=== PATIENT | male | born 1945 | race Caucasian/White ===

== ENCOUNTER 2016-09-25 09:20 | Observation (INO) ==
[2016-09-25 10:05] LABS: Basophils % 0.4 % (0.0-0.8); Eosinophils # 0.3 10*3/uL (0.0-0.87); Eosinophils % 2.8 % (0.00-10.9); Hematocrit 36.4 VOL% (42.0-52.0); Immature Granulocytes % 0.5 %; Immature Granulocytes Absolute 0.05 #; Lymphocytes % 9.6 % (21.2-54.2); Mean Corpuscular HGB Conc 38.5 GM/DL (32-36); Mean Corpuscular Hemoglobin 36 PG (27-34); Mean Corpuscular Volume 93.3 FL (87-102); Mean Platelet Volume 11.4 FL (9.6-12.0); Monocytes % 9.4 % (1.7-12.7); Neutrophils # 8.1 10*3/uL (1.4-7.4); Neutrophils % 77.3 % (38.7-73.9); Platelet Count 236 T/CUMM (130-400); White Blood Count 10.5 T/CUMM (4-12)
[2016-09-25 10:15] LABS: Blood Urea Nitrogen 15 MG/DL (7-18); Calcium 8.8 MG/DL (8.5-10.1); Glucose 87 MG/DL (74-106); Magnesium 2.1 MG/DL (1.8-2.4); Osmolality,Calculated 280.3 MOS/KG (273-304); Potassium 4.3 MMOL/L (3.5-5.1); Sodium 141 MMOL/L (136-145); Troponin I Only < 0.015 NG/ML (0.00-0.045)
--- NOTE | 2016-09-25 10:32 | XRay Report ---
XR chest 2V Date: 09/25/2016 9:50 AM History: Chest pain, dyspnea Comparison: 01/12/2014 Technique: PA and lateral chest Findings: The heart is normal in size. The lungs are overexpanded with diffuse parenchymal findings which remain more prominent at the lung bases. Faint 9 mm mm nodular density in the right lower lobe. Stable mediastinum with degenerative changes. Impression: COPD with chronic scarring . Faint 9 mm nodular density in the right lower lobe. Recent CT report described similar finding dating back to 03/14/2015. PROCEDURE INTERPRETED AT [facility] DEPARTMENT OF RADIOLOGY Final Report Signed by: Dr. Lisa Gomez
--- NOTE | 2016-09-25 10:54 | Emergency Department Note ---
Chet Dee Brooke, am scribing for, and in the presence of, Shorty Barragan MD 09:52. Yung Dee Hans, MD, personally performed the services described in this documentation, ascribed by Sammi Rosenberg in my presence, and it is both accurate and complete . Arrival - Arrival Chief Complaint: Chest Pain Stated Complaint: chest pain ED Nursing Triage Note: Pt c/o Chest pain, SOB, Nausea, VALENCIA, and tightness in his throat since yesterday. Mode of Arrival: Ambulatory Limitations: No Limitations Source: Patient, RN Notes Reviewed Time Seen by Provider: 09/25/16 09:41 - History of Present Illness HPI Narrative: Patient is a 71 year old male who presents to the ED with c/o chest pain that started around 1500 yesterday. He describes the pain as pressure and says it has been constant but worse at times. When the pain first started, yesterday, he says he was at rest. Patient says he did have to have a heart cath and had a stent place, in the past, but says he has never experienced the chest pain. Patient says the pain goes up into his throat and that he has pain when swallowing. He says the pain when swallowing does not make the chest pain worse. He also complains of having shortness of breath, headache, and lightheadedness but denies any nausea or abdominal pain. Patient does have a history of GERD but says he is not having any problems with it at this time. He take a baby ASA daily and says he did take it today. Patient also has PMHx of CAD and HTN. Patient's Lead Presser is Dr. Sexton and he had an appointment about two months ago. Patient's Primary Care Provider is Dr. Miguel. He does not smoke cigarettes and does not drink alcohol. Onset (ago): day(s) (1) Allergies/Adverse Reactions: Allergies Allergy/AdvReac Type Severity Reaction Status Date / Time No Known Allergies Allergy Verified 09/25/16 09:22 Home Medications: Home Medications Medication Instructions Recorded Confirmed Type Citalopram [CeleXA] 20 mg PO DAILY 09/25/16 09/25/16 History Folic Acid Tab 1 mg PO DAILY 09/25/16 09/25/16 History Gabapentin 300 mg PO BID 09/25/16 09/25/16 History Hydroxychloroquine [Plaquenil] 400 mg PO DAILY 09/25/16 09/25/16 History Isosorbide Mononitrate [Isosorbide 30 mg PO MOWEFR 09/25/16 09/25/16 History Mononitrate ER] Methotrexate Tab 7.5 mg PO FR 09/25/16 09/25/16 History Omeprazole [Prilosec] 20 mg PO DAILY 09/25/16 09/25/16 History Rosuvastatin Calcium [Crestor] 5 mg PO MOWEFR 09/25/16 09/25/16 History Review of System - Review of System 12 point system: reviewed and no additional remarkable complaints except as stated - Review of System Constitutional: Absent: fever Head/Ears/Nose/Throat: Present: other (painful when swallowing) Respiratory: Absent: respiratory distress Cardiovascular: Present: chest pain Gastrointestinal: Absent: abdominal pain, nausea Musculoskeletal: Present: neck pain (radiating from chest) Skin: Absent: rash Neurological: Present: headache, other (lightheadedness) Medical,Surgical,& Family Hx - Medical History Cardio: History of: CAD, Hypertension - Surgical History Cardiac Surgeries: Sugical HX of: Cardiac Catheterization - Social History Smoking Status: Never smoker Exam Vital Signs: Vital Signs Temperature 97.0 F L 09/25/16 09:37 Pulse Rate 69 09/25/16 09:37 Respiratory Rate 18 09/25/16 09:37 Blood Pressure 146/99 09/25/16 09:37 O2 Sat by Pulse Oximetry 94 L 09/25/16 09:37 - General General appearance: alert, in no apparent distress - Head Head exam: Present: atraumatic, normocephalic - Eye Eye exam: Present: normal appearance, PERRL, EOMI - ENT ENT exam: Present: normal exam - Neck Neck exam: Present: normal inspection - Chest Chest inspection: Present: normal inspection, symmetric chest wall rise - Respiratory Respiratory exam: Present: normal lung sounds bilaterally - Cardiovascular Cardiovascular exam: Present: regular rate, normal rhythm, normal heart sounds - Abdominal Exam Abdominal exam: Present: soft. Absent: distention, tenderness - Extremities Exam Extremities exam: Present: normal inspection - Back Exam Back exam: Present: normal inspection - Neurological Exam Neurological exam: Present: alert, oriented X3 - Psychiatric Psychiatric exam: Present: normal affect, normal mood - Skin Skin exam: Present: warm, dry, intact, normal color Course Course Narrative: This patient was evaluated with EKG and lab work as well as chest x-ray. His workup was negative for any acute findings but he did have a slightly elevated d -dimer and his creatinine was 1.6. I discussed his care with the hospitalist team on-call who agreed to admit him for a rule out for chest pain and also discussed the d-dimer minimal elevation in kidney function. They agreed to come and see him in the ER. Results - Labs CBC & BMP: 09/25/16 09:39 09/25/16 09:39 Disposition Clinical Impression: Chest pain Case discussed with: patient, patient's family Disposition: Still a Patient Condition: Stable Instructions: Chest Pain (ED) Time of Disposition: 10:54
--- NOTE | 2016-09-25 11:22 | Hospitalist History & Physical ---
Assessment and Plan - Time spent with patient Time spent with patient: Greater than 30 minutes (1) Shortness of breath Status: Acute Assessment and plan: Mr. nelson is a 71-year-old white male with history of RA, hypertension, hyperlipidemia, coronary artery disease status post stent, COPD admitted by the hospitalist service with chest pain and shortness of breath. Patient will be admitted to Dr. Richter on telemetry under observation. Cardiology will be consulted due to patient's cardiac history to rule out ACS. Patient does have an elevated d-dimer but this could be due to his chronic scarring of his lungs. He does have chronic kidney disease that he was unaware of so this would limit the use of dye for a CT of the chest. We will go ahead and hydrate the patient and control his pain. Will get serial EKGs and cardiac enzymes and restart his home medicines. Will keep patient n.p.o. just in case cardiology wants to perform a stress test today. Dr. Richter to see and examined patient and further recommendations to follow. Current Visit: Yes (2) CAD (coronary artery disease) Status: Acute Current Visit: Yes (3) Rheumatoid arthritis Status: Acute Current Visit: Yes (4) COPD (chronic obstructive pulmonary disease) Status: Acute Current Visit: Yes (5) Chronic kidney disease Status: Acute Current Visit: Yes (6) Chest pain Status: Acute Current Visit: Yes History of Present Illness Chief complaint: Chest pain History of present illness: Mr. Nelson is a 71 year old white male with history of RA, GERD, hypertension, hyperlipidemia, CAD status post stent. Patient had a heart cath by Dr. Drummond approximately 8 years ago and he just saw Dr. Sexton for his checkup 3 months before admission. Patient states he was in his normal state of health until about 1500 yesterday when he began to experience some chest pain and pressure associated with shortness of breath. He states he did not become nauseous or diaphoretic. Patient states the pain has been intermittent off and on and rates it a 4 out of 10 right now. He says it does radiate into his throat. He denies difficulty swallowing or nausea with eating. Patient is afebrile and his pulse rate is normal but his blood pressure is mildly elevated at 146/99. Patient states he did take his medicines this morning. His initial troponin is negative and his EKG shows ectopic atrial rhythm with possible right ventricular hypertrophy and old SD. D-dimer is mildly elevated at 1.0 he does have a creatinine of 1.6 and noted in his old chart he had a creatinine of 1.7 and 2015. He denies blurry vision, abdominal pain, constipation or diarrhea , dysuria, or lower extremity edema. Patient denies that he has any problems with his kidneys and he denies COPD. Dr. Winter has been following him for a right lower lobe nodule with a CT of his chest done in July 2016. It does show the stable lung nodule and fibrosis. After discussion with Dr. Barragan the ED physician and Dr. Richter the admitting hospitalist, it was agreed patient would be admitted under observation for further evaluation. Home Medications Medication Instructions Recorded Confirmed Type Citalopram [CeleXA] 20 mg PO DAILY 09/25/16 09/25/16 History Folic Acid Tab 1 mg PO DAILY 09/25/16 09/25/16 History Gabapentin 300 mg PO BID 09/25/16 09/25/16 History Hydroxychloroquine [Plaquenil] 400 mg PO DAILY 09/25/16 09/25/16 History Isosorbide Mononitrate [Isosorbide 30 mg PO MOWEFR 09/25/16 09/25/16 History Mononitrate ER] Methotrexate Tab 7.5 mg PO FR 09/25/16 09/25/16 History Omeprazole [Prilosec] 20 mg PO DAILY 09/25/16 09/25/16 History Rosuvastatin Calcium [Crestor] 5 mg PO MOWEFR 09/25/16 09/25/16 History Allergies Allergy/AdvReac Type Severity Reaction Status Date / Time No Known Allergies Allergy Verified 09/25/16 09:22 Medical,Surgical,& Family Hx - Medical History Cardio: History of: CAD, Hypertension - Surgical History Cardiac Surgeries: Sugical HX of: Cardiac Catheterization Abdominal Surgeries: Surgical HX of: Hernia Repair - Family History Family History: Reports;: Family Heart Disease - Social History Smoking Status: Former smoker Have you smoked in the last 12 months: No Frequency of Alcohol Use: None Type of Drug Use: None Marital Status: Lives With:: Spouse Functional capacity: independent ambulation Review of systems: A complete 10 system review of systems was obtained and pertinent positives and negatives per HPI Exam - Constitutional Vitals: Period Temp Pulse Resp BP Sys/Lucero Pulse Ox Last 24 Hr 97.0 F-97.0 F 69-69 18-18 146-146/99-99 94 Exam: Constitutional System: No distress. No tremulousness. Head: Normocephalic, atraumatic. Ears, Nose and Throat System: No evidence of Otitis or Mastoiditis. No epistaxis or discharge Eyes System: Pupils equal, round, and reactive. Extraocular muscles intact. Neck: Supple, without adenopathy, No jugular venous distention. No thyromegaly, neck mass, or prior surgery apparent. Respiratory System: Chest clear to auscultation. Cardiovascular System: Heart with regular rate and rhythm. No murmur. GI System: Abdomen soft, nontender. Normo active bowel sounds present. Musculoskeletal System: limbs with no pedal edema. Full distal pulses. Neurological System: No discernable sensory deficit. No aphasia Psychiatric System: Conversation is rational Results - Labs CBC & BMP: 09/25/16 09:39 09/25/16 09:39 Lab Results: I have reviewed the past 24 hour labs - Impressions EKG is reading ectopic atrial rhythm with possible right ventricular hypertrophy and a septal SD, probably old - Diagnostic Findings Procedure: Chest x-ray: report reviewed by me (COPD with chronic scarring. Faint 9 mm nodular density in the right lower lobe)
[2016-09-25] MEDS ORDERED: ONDANSETRON 4 MG/2 ML VIAL IV PRN (11:29)
[2016-09-25] MEDS ORDERED: diphenhydrAMINE CAP 25 MG CAPSULE PO PRN (11:29)
[2016-09-25] MEDS ORDERED: guaiFENesin/DM ER 600-30 MG TABLET PO PRN (11:29)
[2016-09-25] MEDS ORDERED: ACETAMINOPHEN 325 MG TABLET PO PRN ×2 (11:29)
[2016-09-25] MEDS ORDERED: MORPHINE 2 MG/1 ML SYRINGE IV PRN (11:29)
[2016-09-25] MEDS ORDERED: DOCUSATE SODIUM 100 MG CAPSULE PO PRN (11:29)
[2016-09-25] MEDS ORDERED: PROMETHAZINE 25 MG/1 ML VIAL IM PRN (11:29)
[2016-09-25] MEDS ORDERED: PANTOPRAZOLE 40 MG TABLET PO SCH (11:30)
[2016-09-25] MEDS ORDERED: ROSUVASTATIN 10 MG TABLET PO SCH (11:45)
[2016-09-25] MEDS ORDERED: ISOSORBIDE MONONITRATE 30 MG TABLET PO SCH (12:00)
[2016-09-25] MEDS ORDERED: METHOTREXATE 2.5 MG TABLET PO SCH (12:00)
[2016-09-25 12:03] LABS: Risk Ratio 3.59; Thyroid Stimulating Hormone 2.14 uIU/ml (0.358-3.74)
[2016-09-25] MEDS ORDERED: ASPIRIN 325 MG TABLET PO ONE (12:39)
[2016-09-25] MEDS ORDERED: ENOXAPARIN 60 MG/0.6 ML SYRINGE SUBCUT ONE (12:41)
--- NOTE | 2016-09-25 12:54 | Cardiology Consult Note ---
<Sheryl Garcia E - Last Filed: 09/25/16 12:23> Assessment and Plan - Time spent with patient Time spent with patient: Greater than 30 minutes (1) Hypertension Status: Chronic Assessment and plan: SEE PLAN OF CARE LISTED BELOW Current Visit: Yes (2) Dyslipidemia Status: Chronic Assessment and plan: SEE PLAN OF CARE LISTED BELOW Current Visit: Yes (3) Dysuria Status: Acute Assessment and plan: SEE PLAN OF CARE LISTED BELOW Current Visit: Yes (4) Chest pain Status: Acute Assessment and plan: SEE PLAN OF CARE LISTED BELOW Current Visit: Yes (5) CAD (coronary artery disease) Status: Chronic Assessment and plan: SEE PLAN OF CARE LISTED BELOW Current Visit: Yes (6) Chronic kidney disease Status: Chronic Assessment and plan: SEE PLAN OF CARE LISTED BELOW Current Visit: Yes Qualifiers: Chronic kidney disease stage: stage 3 (moderate) Qualified Code(s): N18.3 - Chronic kidney disease, stage 3 (moderate) History of Present Illness - Data of Consult Patient: known to practice within the last 3 years Consult date: 09/25/16 Requesting Physician: Maribel Richter - Consult Narrative Reason for consult: chset pain, known CAD History of present illness: RF TEST TECHNICIAN: DR. MORAN Patient is being seen in the emergency department Mr. Auguste, 71WM, is routinely followed by Dr. Moran. He was last seen in cardiology clinic April 21, 2016. Risk factors include: Age, known coronary artery disease, hypertension, dyslipidemia, family history of premature coronary artery disease. Last cardiac catheterization occurred July 11, 2010, see report below, but basically required PCI to obtuse marginal circumflex, moderate disease in the proximal LAD, RI, and chronically occluded right coronary artery with collaterals (nondominant right coronary artery). EF 50%. Patient arrived to the [facility] ED this morning after experiencing chest pain since 3 PM yesterday. It has been constant and without relief. He describes the discomfort as sharp in the center of his chest which radiates toward his sternal notch. It is worse when taking a deep breath. Walking does make this worse as he tries to take a deep breath, worse in certain positions. Examining the patient, he pulls himself forward and has severe chest pain. He rates the discomfort at its worst as a 7 on a scale of 1-10, currently a 4. There is no nausea, or diaphoresis. He can identify no alleviating factors. Patient states that he is normally very active doing frequent heavy lifting. Denies a history of DVT or PTE. Cardiac biomarkers are negative, EKG reveals possible old septal [place]. I have ordered aspirin, Nitropaste, beta blockade, therapeutic dosing of Lovenox until we can rule out PE or angina. VQ lung scan will be ordered. UA for dysuria. Also, will treat for musculoskeletal pain. No recent echocardiogram has been found. Will consider ordering echo if Dr. Woo believes one is warranted during this hospitalization. I will further discuss with Dr. Woo and await additional recommendations. ASSESSMENT/PLAN: 1. CHEST PAIN -patient has a history of known coronary artery disease. The chest discomfort he is describing is concerning for musculoskeletal component versus pulmonary thromboembolism. Patient admits to lifting heavy items frequently and recently. VQ lung scan will be ordered. I have ordered an aspirin, Lovenox (therapeutic dose) beta-blockade and nitrates. Continue cycle his cardiac biomarkers and EKG. Treat pain with musculoskeletal meds in the interim. 2. KNOWN CAD - obtained heart catheterization from 2010 and will have this scanned-in. Details listed above 3. HYPERTENSION - usually well controlled. Giving beta-perez and 4. DYSLIPIDEMIA - had recent lipid profile in the clinic and therefore will not repeat at this point. Continue lipid-lowering agent. 5. DYSURIA -UA, C&S if warranted 6. CKD, STAGE III - continue to monitor creatinine closely CC: Maribel Richter MD - Home Medications and Allergies Home Medications: Home Medications Medication Instructions Recorded Confirmed Type Citalopram [CeleXA] 20 mg PO DAILY 09/25/16 09/25/16 History Folic Acid Tab 1 mg PO DAILY 09/25/16 09/25/16 History Gabapentin 300 mg PO BID 09/25/16 09/25/16 History Hydroxychloroquine [Plaquenil] 400 mg PO DAILY 09/25/16 09/25/16 History Isosorbide Mononitrate [Isosorbide 30 mg PO MOWEFR 09/25/16 09/25/16 History Mononitrate ER] Methotrexate Tab 7.5 mg PO FR 09/25/16 09/25/16 History Omeprazole [Prilosec] 20 mg PO DAILY 09/25/16 09/25/16 History Rosuvastatin Calcium [Crestor] 5 mg PO MOWEFR 09/25/16 09/25/16 History Ferrous Sulfate [Iron] 1 tablet PO DAILY 09/26/16 09/26/16 History Multivitamin [Multivitamins] 1 each PO DAILY 09/26/16 09/26/16 History [place]-3/Dha/Epa/Fish Oil [Fish Oil 1,000 mg PO DAILY 09/26/16 09/26/16 History 1,000 mg Softgel] Allergies/Adverse Reactions: Allergies Allergy/AdvReac Type Severity Reaction Status Date / Time No Known Allergies Allergy Verified 09/25/16 09:22 Review of systems: REVIEW OF SYSTEMS: - Constitutional Constitutional: Denies fatigue. Absent: syncope, anorexia, night sweats - EENT Eyes: Absent: blurry vision, loss of vision, diplopia Ears: Absent: decreased hearing, ear pain, ear discharge - Cardiovascular Cardiovascular: Present: chest pain with deep breath, certain movements. Difficulty breathing with exertion due to pain when taking a deep breath. No recent edema or palpitations. No claudication - Respiratory Respiratory: Present: Denies cough, hemoptysis. Absent: wheezing, hemoptysis, change in phlegm color - Gastrointestinal Gastrointestinal: Denies constipation constipation. Absent: Abdominal pain, hematemesis, hematochezia, melena, change in bowel habits, nausea - Genitourinary Genitourinary: Acknowledges recent dysuria including difficulty urinating and foul-smelling urine. Absent: difficulty urinating, urinary hesitancy, flank pain - Musculoskeletal Musculoskeletal: Present: back pain Absent: joint swelling, muscle cramps, muscle weakness - Neurological Neurological: Present: normal gait without frequent falls. Absent: dizziness, hemiparesis - Psychiatric Psychiatric: Absent: anxiety, depression, difficulty concentrating - Endocrine Endocrine: Denies fatigue. Absent: cold intolerance, heat intolerance, polyuria , polyphagia, polydipsia - Hematologic/Lymphatic Hematologic/Lymphatic: Present: easy bruising. Absent: easy bleeding -Integumentary Integumentary: Absent: lesions, rashes, skin breakdown Medical,Surgical,& Family Hx - Medical History Cardio: History of: CAD, Hypertension No history of: Cardiac Dysrhythmia - Surgical History Cardiac Surgeries: Sugical HX of: Cardiac Catheterization Abdominal Surgeries: Surgical HX of: Hernia Repair - Family History Family History: Reports;: Family Heart Disease - Social History Smoking Status: Former smoker Have you smoked in the last 12 months: No Frequency of Alcohol Use: None Type of Drug Use: None Marital Status: Lives With:: Spouse Functional capacity: independent ambulation Physical Examination Vital Signs Temp Pulse Resp BP 97.0 F L 69 18 146/99 09/25/16 09:35 09/25/16 09:35 09/25/16 09:35 09/25/16 09:35 General: [Appears well with no apparent distress.] [Pleasant and cooperative. ] [Appears comfortable.] HEENT: [PERRL, normocephalic, atraumatic. Mucous membranes moist. No jaundice noted. Conjunctiva moist and clear, sclerae anicteric] Neck: No JVD/HJR, no thyromegaly or lymphadenopathy noted. No carotid bruit appreciated Cardiac: [Regular rate and rhythm.] [No murmur rub or gallop.] Lungs: [Clear to auscultation without accessory muscle use to assist the respiratory pattern.] Oxygen in use via nasal cannula Abdomen: Soft, bowel sounds normoactive. Nontender and nondistended. No abdominal bruit or thrill noted. No masses noted. Musculoskeletal: No fluid collection. Decreased range of motion is noted. Extremities: No clubbing, cyanosis noted. [ No edema noted.] Upper extremity pulses 2+. Lower extremity pulses 2+. Capillary refill less than 3 seconds. Skin: No unusual lesions or rashes. No skin breakdown appreciated. Neuro: Awake, alert and oriented 3. Moves all extremities well without hemiparesis or paralysis. No essential tremor is appreciated. Result/EKG - Labs CBC & BMP: 09/25/16 09:39 09/25/16 09:39 Lab Results: I have reviewed the past 24 hour labs Labs: Laboratory Results - last 24 hr 09/25/16 09/25/16 09/25/16 09:30 09:39 09:39 WBC 10.5 RBC 3.90 Hgb 14.0 Hct 36.4 L MCV 93.3 MCH 36 H MCHC 38.5 H RDW 13.0 Plt Count 236 MPV 11.4 Neut % (Auto) 77.3 H Lymph % (Auto) 9.6 L [place] % (Auto) 9.4 Eos % (Auto) 2.8 Baso % (Auto) 0.4 Neut # (Auto) 8.1 H Lymph # (Auto) 1.0 L [place] # (Auto) 1.0 H Eos # (Auto) 0.3 Baso # (Auto) 0.0 Immature Gran % 0.5 Nucleated RBC % 0.0 Immature Gran # 0.05 Nucleated RBCs # 0.00 D-Dimer, Quantitative 1.0 Sodium Potassium Chloride Carbon Dioxide Anion Gap BUN Creatinine GFR Calculation BUN/Creatinine Ratio Glucose Calculated Osmolality Calcium Magnesium Total Creatine Kinase CK-MB (CK-2) Troponin I B-Natriuretic Peptide Triglycerides 110 Cholesterol 183 LDL Cholesterol 108.0 VLDL Cholesterol 22.0 HDL Cholesterol 51 Heart Disease Risk Ratio 3.59 TSH 3rd Generation 2.140 09/25/16 09/25/16 09:39 09:39 WBC RBC Hgb Hct MCV MCH MCHC RDW Plt Count MPV Neut % (Auto) Lymph % (Auto) [place] % (Auto) Eos % (Auto) Baso % (Auto) Neut # (Auto) Lymph # (Auto) [place] # (Auto) Eos # (Auto) Baso # (Auto) Immature Gran % Nucleated RBC % Immature Gran # Nucleated RBCs # D-Dimer, Quantitative Sodium 141 Potassium 4.3 Chloride 106 Carbon Dioxide 27 Anion Gap 12.3 BUN 15 Creatinine 1.60 H GFR Calculation 54 BUN/Creatinine Ratio 9.00 Glucose 87 Calculated Osmolality 280.3 Calcium 8.8 Magnesium 2.1 Total Creatine Kinase 70 CK-MB (CK-2) < 1.0 Troponin I < 0.015 B-Natriuretic Peptide 127 H Triglycerides Cholesterol LDL Cholesterol VLDL Cholesterol HDL Cholesterol Heart Disease Risk Ratio TSH 3rd Generation - Diagnostic Findings Procedure: Chest x-ray: report reviewed by me - EKG EKG results: interpreted by mi EKG shows: sinus rhythm Specialty Discharge - Follow Up or Referrals <Andrzej oWo - Last Filed: 09/26/16 10:36> History of Present Illness - Consult Narrative History of present illness: Mr. Auguste is a 71 year old male CC: Maribel Richter MD Physical Examination Vital Signs Temp Pulse Resp BP 97.0 F L 69 18 146/99 09/25/16 09:35 09/25/16 09:35 09/25/16 09:35 09/25/16 09:35 Result/EKG - Labs CBC & BMP: 09/26/16 04:19 09/26/16 04:19 Labs: Laboratory Results - last 24 hr 09/25/16 09/25/16 09/25/16 09:30 09:30 09:39 WBC RBC Hgb Hct MCV MCH MCHC RDW Plt Count MPV Neut % (Auto) Lymph % (Auto) [place] % (Auto) Eos % (Auto) Baso % (Auto) Neut # (Auto) Lymph # (Auto) [place] # (Auto) Eos # (Auto) Baso # (Auto) Immature Gran % Nucleated RBC % Immature Gran # Nucleated RBCs # Sodium Potassium Chloride Carbon Dioxide Anion Gap BUN Creatinine GFR Calculation BUN/Creatinine Ratio Glucose Calculated Osmolality Calcium Magnesium Total Creatine Kinase CK-MB (CK-2) Troponin I B-Natriuretic Peptide 127 H Triglycerides 110 Cholesterol 183 LDL Cholesterol 108.0 VLDL Cholesterol 22.0 HDL Cholesterol 51 Heart Disease Risk Ratio 3.59 Free T4 0.87 TSH 3rd Generation 2.140 09/25/16 09/25/16 09/26/16 19:29 23:13 04:19 WBC 10.7 RBC 3.75 L Hgb 12.7 L Hct 35.2 L MCV 93.9 MCH 34 MCHC 36.1 H RDW 12.8 Plt Count 221 MPV 11.4 Neut % (Auto) 72.7 Lymph % (Auto) 14.5 L [place] % (Auto) 10.2 Eos % (Auto) 1.9 Baso % (Auto) 0.4 Neut # (Auto) 7.8 H Lymph # (Auto) 1.6 [place] # (Auto) 1.1 H Eos # (Auto) 0.2 Baso # (Auto) 0.0 Immature Gran % 0.3 Nucleated RBC % 0.0 Immature Gran # 0.03 Nucleated RBCs # 0.00 Sodium Potassium Chloride Carbon Dioxide Anion Gap BUN Creatinine GFR Calculation BUN/Creatinine Ratio Glucose Calculated Osmolality Calcium Magnesium Total Creatine Kinase 51 D 52 CK-MB (CK-2) < 1.0 < 1.0 Troponin I < 0.015 < 0.015 B-Natriuretic Peptide Triglycerides Cholesterol LDL Cholesterol VLDL Cholesterol HDL Cholesterol Heart Disease Risk Ratio Free T4 TSH 3rd Generation 09/26/16 04:19 WBC RBC Hgb Hct MCV MCH MCHC RDW Plt Count MPV Neut % (Auto) Lymph % (Auto) [place] % (Auto) Eos % (Auto) Baso % (Auto) Neut # (Auto) Lymph # (Auto) [place] # (Auto) Eos # (Auto) Baso # (Auto) Immature Gran % Nucleated RBC % Immature Gran # Nucleated RBCs # Sodium 141 Potassium 4.5 Chloride 106 Carbon Dioxide 27 Anion Gap 12.5 BUN 17 Creatinine 1.60 H GFR Calculation 54 BUN/Creatinine Ratio 10.00 Glucose 86 Calculated Osmolality 281.3 Calcium 7.9 L Magnesium 2.1 Total Creatine Kinase CK-MB (CK-2) Troponin I B-Natriuretic Peptide Triglycerides Cholesterol LDL Cholesterol VLDL Cholesterol HDL Cholesterol Heart Disease Risk Ratio Free T4 TSH 3rd Generation
--- NOTE | 2016-09-25 13:31 | Nuclear Medicine Report ---
Exam: Lung scan ventilation/perfusion Date: September 25, 2016 Comparison: Chest 2 views September 25, 2016 Reason: Chest pain with deep breath Technique: 40 mCi of technetium 99m DTPA aerosolized was administered as well as 5 mCi of technetium 99m MAA IV. Ventilation and perfusion images of both lungs were acquired. Findings: There are a few small matched ventilation/perfusion defects at both lungs. There are also one or 2 small mismatched perfusion defects and mismatched ventilation defects. However, no large mismatched perfusion defect is identified. Impression: Low probability for pulmonary embolism. PROCEDURE INTERPRETED AT [facility] DEPARTMENT OF RADIOLOGY Final Report Signed by: Dr. Moy Rome
--- NOTE | 2016-09-25 13:58 | EKG Report ---
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
[2016-09-25] MEDS: HYDROXYCHLOROQUINE 200 MG TABLET PO SCH (15:15)
[2016-09-25] MEDS: NITROGLYCERIN 2% OINT 1 INCH/GM PACK TOP SCH ×2 (15:15→18:31)
[2016-09-25] MEDS: GABAPENTIN 300 MG CAPSULE PO SCH ×2 (15:15→21:50)
[2016-09-25] MEDS: CITALOPRAM 20 MG TABLET PO SCH (15:16)
[2016-09-25] MEDS: FOLIC ACID 1 MG TABLET PO SCH (15:16)
[2016-09-25] MEDS: METOPROLOL TARTRATE 25 MG TABLET PO SCH ×2 (15:16→21:50)
[2016-09-25] MEDS: SODIUM CHLORIDE 0.9% 1,000 ML IV SCH ×2 (15:17→21:52)
[2016-09-25] MEDS: ENOXAPARIN 40 MG/0.4 ML SYRINGE SUBCUT SCH (15:17)
[2016-09-25] MEDS: PANTOPRAZOLE 40 MG VIAL IV SCH (15:34)
[2016-09-25 20:22] LABS: Troponin I Only < 0.015 NG/ML (0.00-0.045)
[2016-09-26] LABS: Troponin I Only < 0.015 NG/ML (0.00-0.045)
[2016-09-26] MEDS: NITROGLYCERIN 2% OINT 1 INCH/GM PACK TOP SCH ×2 (00:01→06:25)
[2016-09-26 04:59] LABS: Basophils % 0.4 % (0.0-0.8); Eosinophils # 0.2 10*3/uL (0.0-0.87); Eosinophils % 1.9 % (0.00-10.9); Hematocrit 35.2 VOL% (42.0-52.0); Hemoglobin 12.7 GM/DL (14.0-18.0); Immature Granulocytes % 0.3 %; Immature Granulocytes Absolute 0.03 #; Lymphocytes # 1.6 10*3/uL (1.4-4.0); Lymphocytes % 14.5 % (21.2-54.2); Mean Corpuscular HGB Conc 36.1 GM/DL (32-36); Mean Corpuscular Hemoglobin 34 PG (27-34); Mean Corpuscular Volume 93.9 FL (87-102); Mean Platelet Volume 11.4 FL (9.6-12.0); Monocytes # 1.1 10*3/uL (0.11-0.8); Monocytes % 10.2 % (1.7-12.7); Neutrophils # 7.8 10*3/uL (1.4-7.4); Neutrophils % 72.7 % (38.7-73.9); Platelet Count 221 T/CUMM (130-400); Red Blood Count 3.75 MC/CUMM (3.8-5.5); Red Cell Distribution Width 12.8 % (9.3-17.3); White Blood Count 10.7 T/CUMM (4-12)
[2016-09-26 05:36] LABS: Calcium 7.9 MG/DL (8.5-10.1); Magnesium 2.1 MG/DL (1.8-2.4); Osmolality,Calculated 281.3 MOS/KG (273-304); Potassium 4.5 MMOL/L (3.5-5.1)
[2016-09-26] MEDS: SODIUM CHLORIDE 0.9% 1,000 ML IV SCH ×2 (06:25→08:34)
[2016-09-26] MEDS: FOLIC ACID 1 MG TABLET PO SCH (09:16)
[2016-09-26] MEDS: METOPROLOL TARTRATE 25 MG TABLET PO SCH (09:16)
[2016-09-26] MEDS: CITALOPRAM 20 MG TABLET PO SCH (09:16)
[2016-09-26] MEDS: GABAPENTIN 300 MG CAPSULE PO SCH (09:16)
[2016-09-26] MEDS: HYDROXYCHLOROQUINE 200 MG TABLET PO SCH (09:18)
[2016-09-26] MEDS: PANTOPRAZOLE 40 MG VIAL IV SCH (09:18)
--- NOTE | 2016-09-26 10:39 | Cardiology Progress Note ---
Assessment and Plan (1) Chest pain Status: Acute Assessment and plan: 1. 71-year-old with history of moderate coronary artery disease and significant disease requiring circumflex stenting in [address] Gonzales who had some pleuritic chest pain when he came in yesterday after doing some fairly heavy physical exertion previously 2. He has no acute EKG changes rule out for [place] 3. Given his gradual increased fatigue/dyspnea on exertion over the last few years, would schedule pharmacologic myocardial scan next week with follow-up with Dr. Gonzales in 1-2 weeks time. Of course will need to be n.p.o. prior to his stress test. 4. He can be discharged from a cardiac standpoint. He can continue his previous home cardiac medications. He has occasional GERD, and I recommend as needed H2 perez or PPI. Current Visit: Yes (2) Shortness of breath Status: Acute Current Visit: Yes Cardiology - PN: Subj Interval history: Mr. nelson feels great this morning has no more chest pain. He is anxious for discharge. He reports he has had worsening dyspnea on exertion gradually for several years "I give out fact that I used to". His reports he is very active and works hours per day. He did do some significant physical activity prior to developing his pleuritic chest pain. Exam (Progress Note) - Constitutional Vitals: Period Temp Pulse Resp BP Sys/Lucero Pulse Ox Last 24 Hr 97.7 F-99.9 F 60-70 16-21 124-174/69-92 94-97 General appearance: normal weight, no acute distress - Head Head exam: Present: normal inspection, normocephalic - Respiratory Respiratory exam: Present: clear to auscultation bilaterally. Absent: stridor, wheezes - Cardiovascular Cardiovascular exam: Present: regular rate and rhythm. Absent: diastolic murmur , rubs - GI/Abdominal GI/Abdominal exam: Present: soft. Absent: tenderness - Extremities Exam Extremities exam: Absent: edema Result/EKG - Labs CBC & BMP: 09/26/16 04:19 09/26/16 04:19 Labs: Laboratory Results - last 24 hr 09/25/16 09/25/16 09/25/16 09:30 09:30 09:39 WBC RBC Hgb Hct MCV MCH MCHC RDW Plt Count MPV Neut % (Auto) Lymph % (Auto) [place] % (Auto) Eos % (Auto) Baso % (Auto) Neut # (Auto) Lymph # (Auto) [place] # (Auto) Eos # (Auto) Baso # (Auto) Immature Gran % Nucleated RBC % Immature Gran # Nucleated RBCs # Sodium Potassium Chloride Carbon Dioxide Anion Gap BUN Creatinine GFR Calculation BUN/Creatinine Ratio Glucose Calculated Osmolality Calcium Magnesium Total Creatine Kinase CK-MB (CK-2) Troponin I B-Natriuretic Peptide 127 H Triglycerides 110 Cholesterol 183 LDL Cholesterol 108.0 VLDL Cholesterol 22.0 HDL Cholesterol 51 Heart Disease Risk Ratio 3.59 Free T4 0.87 TSH 3rd Generation 2.140 09/25/16 09/25/16 09/26/16 19:29 23:13 04:19 WBC 10.7 RBC 3.75 L Hgb 12.7 L Hct 35.2 L MCV 93.9 MCH 34 MCHC 36.1 H RDW 12.8 Plt Count 221 MPV 11.4 Neut % (Auto) 72.7 Lymph % (Auto) 14.5 L [place] % (Auto) 10.2 Eos % (Auto) 1.9 Baso % (Auto) 0.4 Neut # (Auto) 7.8 H Lymph # (Auto) 1.6 [place] # (Auto) 1.1 H Eos # (Auto) 0.2 Baso # (Auto) 0.0 Immature Gran % 0.3 Nucleated RBC % 0.0 Immature Gran # 0.03 Nucleated RBCs # 0.00 Sodium Potassium Chloride Carbon Dioxide Anion Gap BUN Creatinine GFR Calculation BUN/Creatinine Ratio Glucose Calculated Osmolality Calcium Magnesium Total Creatine Kinase 51 D 52 CK-MB (CK-2) < 1.0 < 1.0 Troponin I < 0.015 < 0.015 B-Natriuretic Peptide Triglycerides Cholesterol LDL Cholesterol VLDL Cholesterol HDL Cholesterol Heart Disease Risk Ratio Free T4 TSH 3rd Generation 09/26/16 04:19 WBC RBC Hgb Hct MCV MCH MCHC RDW Plt Count MPV Neut % (Auto) Lymph % (Auto) [place] % (Auto) Eos % (Auto) Baso % (Auto) Neut # (Auto) Lymph # (Auto) [place] # (Auto) Eos # (Auto) Baso # (Auto) Immature Gran % Nucleated RBC % Immature Gran # Nucleated RBCs # Sodium 141 Potassium 4.5 Chloride 106 Carbon Dioxide 27 Anion Gap 12.5 BUN 17 Creatinine 1.60 H GFR Calculation 54 BUN/Creatinine Ratio 10.00 Glucose 86 Calculated Osmolality 281.3 Calcium 7.9 L Magnesium 2.1 Total Creatine Kinase CK-MB (CK-2) Troponin I B-Natriuretic Peptide Triglycerides Cholesterol LDL Cholesterol VLDL Cholesterol HDL Cholesterol Heart Disease Risk Ratio Free T4 TSH 3rd Generation Specialty Discharge - Follow Up or Referrals
--- NOTE | 2016-09-26 11:03 | Discharge Summary ---
Hospital Course - Hospital Course Hospital Course: Mr Auguste presented with atypical chest pain. He has a history of Mi and stents in 2010. He ruled out for Mi with serial troponins and EKG. He had been doing a lot of heavy lifting at home recently. His chest pain was pleuritic in nature. His CXR was clear and he had no sign of infection. This morning it is gone, he feels well and is asking for discharge. Metoprolol was added to his meds and I will give him a dose of his usual imdur also prior to discharge and recheck his blood pressure- it was 174/87 when checked this morning. If it remains high I will adjust his meds further. He was seen by Dr Woo, cardiology who recommends outpatient stress test with Dr Sexton in a week or so. The patient has had worsening dyspnea over several years. He will continue his PPI but I have increased the dose to 40 mg a day. - Time spent with patient Time with patient DS: Greater than 30 minutes (exam, coordination of care, medicine reconciliation, documentation took 31 minutes.) Diagnosis - Discharge Diagnosis (1) Chest pain Status: Resolved (2) Shortness of breath Status: Resolved (3) CAD (coronary artery disease) Status: Chronic (4) Rheumatoid arthritis Status: Chronic (5) COPD (chronic obstructive pulmonary disease) Status: Chronic (6) Chronic kidney disease Status: Chronic (7) Hypertension Status: Chronic (8) Dyslipidemia Status: Chronic Specialty Discharge - Follow Up or Referrals Follow up with: Ene Sexton, [Physician] - 1 Week (stress test) Your, PCP [Other] - 1 Week Discharge Plan - Discharge Data Disposition: Disch To Home/Self Care Condition at Discharge: Stable Discharge Diet: heart healthy Activity: resume usual activities as tolerated - Discharge Medications New Metoprolol Tartrate Tab [Lopressor Tab] 12.5 mg PO BID #60 tablet Continue Citalopram [CeleXA] 20 mg PO DAILY Methotrexate Tab 7.5 mg PO FR Hydroxychloroquine [Plaquenil] 400 mg PO DAILY Isosorbide Mononitrate [Isosorbide Mononitrate ER] 30 mg PO MOWEFR [place]-3/Dha/Epa/Fish Oil [Fish Oil 1,000 mg Softgel] 1,000 mg PO DAILY Multivitamin [Multivitamins] 1 each PO DAILY Ferrous Sulfate [Iron] 1 tablet PO DAILY Omeprazole [Prilosec] 40 mg PO DAILY #0 Rosuvastatin Calcium [Crestor] 5 mg PO MOWEFR Folic Acid Tab 1 mg PO DAILY Gabapentin 300 mg PO BID - Follow Up or Referral Follow Up: Your, PCP [Other] - 1 Week Ene Sexton DO [Physician] - 1 Week (stress test) - Forms/Instructions Instructions: Chest Pain (ED) Exam - Constitutional Vitals: Period Temp Pulse Resp BP Sys/Lucero Pulse Ox Last 24 Hr 97.7 F-99.9 F 60-70 16-21 124-174/69-92 94-97 General appearance: normal weight, no acute distress (lying flat, breathign comfortably) - Head Head exam: Present: normocephalic, atraumatic - Eye Eye exam: Present: EOMI. Absent: scleral icterus Pupils: Present: CHEL - Respiratory Respiratory exam: Present: clear to auscultation bilaterally - Cardiovascular Cardiovascular exam: Present: regular rate and rhythm - GI/Abdominal GI/Abdominal exam: Present: normal bowel sounds, soft. Absent: tenderness - Extremities Exam Extremities exam: Absent: edema Discharge Results Procedures and tests throughout hospitalization: Pending Orders 09/27/16 04:00 BMP w/ Mg [Basic Metabolic Panel w/Mg] IN AM CBC [Comp Blood Count Auto Diff] IN AM 09/28/16 04:00 BMP w/ Mg [Basic Metabolic Panel w/Mg] IN AM CBC [Comp Blood Count Auto Diff] IN AM Labs on day of discharge: Labs from last 24 hours 09/26/16 09/26/16 09/25/16 04:19 04:19 23:13 WBC 10.7 RBC 3.75 L Hgb 12.7 L Hct 35.2 L MCV 93.9 MCH 34 MCHC 36.1 H RDW 12.8 Plt Count 221 MPV 11.4 Neut % (Auto) 72.7 Lymph % (Auto) 14.5 L [place] % (Auto) 10.2 Eos % (Auto) 1.9 Baso % (Auto) 0.4 Neut # (Auto) 7.8 H Lymph # (Auto) 1.6 [place] # (Auto) 1.1 H Eos # (Auto) 0.2 Baso # (Auto) 0.0 Immature Gran % 0.3 Nucleated RBC % 0.0 Immature Gran # 0.03 Nucleated RBCs # 0.00 Sodium 141 Potassium 4.5 Chloride 106 Carbon Dioxide 27 Anion Gap 12.5 BUN 17 Creatinine 1.60 H GFR Calculation 54 BUN/Creatinine Ratio 10.00 Glucose 86 Calculated Osmolality 281.3 Calcium 7.9 L Magnesium 2.1 Total Creatine Kinase 52 CK-MB (CK-2) < 1.0 Troponin I < 0.015 Triglycerides Cholesterol LDL Cholesterol VLDL Cholesterol HDL Cholesterol Heart Disease Risk Ratio Free T4 TSH 3rd Generation 09/25/16 09/25/16 09/25/16 19:29 09:30 09:30 WBC RBC Hgb Hct MCV MCH MCHC RDW Plt Count MPV Neut % (Auto) Lymph % (Auto) [place] % (Auto) Eos % (Auto) Baso % (Auto) Neut # (Auto) Lymph # (Auto) [place] # (Auto) Eos # (Auto) Baso # (Auto) Immature Gran % Nucleated RBC % Immature Gran # Nucleated RBCs # Sodium Potassium Chloride Carbon Dioxide Anion Gap BUN Creatinine GFR Calculation BUN/Creatinine Ratio Glucose Calculated Osmolality Calcium Magnesium Total Creatine Kinase 51 D CK-MB (CK-2) < 1.0 Troponin I < 0.015 Triglycerides 110 Cholesterol 183 LDL Cholesterol 108.0 VLDL Cholesterol 22.0 HDL Cholesterol 51 Heart Disease Risk Ratio 3.59 Free T4 0.87 TSH 3rd Generation 2.140 DS: Provider Date of admission: 09/25/16 10:57 Primary care physician: Abimael Miguel DO Attending physician on admission: Maribel Richter MD Consults: 09/25/16 11:29 Consult to Physician [CONS] Routine Comment: chest pain rule out Consulting Provider: Cardiology - [facility] When should Consulting Provider be notified: Now Person Notified: miguel Date Notified: 09/25/16 Time Notified: 14:23 Discharging clinician: Maribel Richter MD
[2016-09-26] MEDS ORDERED: ISOSORBIDE MONONITRATE 30 MG TABLET PO SCH (11:30)
[2016-09-26] MEDS: ENOXAPARIN 40 MG/0.4 ML SYRINGE SUBCUT SCH (11:41)
[2016-09-26 12:09] VITALS: BP 141/84
== END 2016-09-26 14:00 | disposition home or self-care (01) ==
LOC: N.EDINP 09:20 → N.ED 09:20 → N.TELEN 11:16
PROVIDERS: ADMIT Internal Medicine; ATTEND Internal Medicine